=== PATIENT | male | born 1960 | race Caucasian/White ===

== ENCOUNTER 2017-02-16 06:26 | Day surgery (SDC) | payer BC ==
[~2017-02-16 06:26] MED LIST: ACETAMINOPHEN 1,000 MG/100 ML BTL IV ONE; CEFAZOLIN 2 Gram 2 GM/50 ML BAG IVPB ONE; FAMOTIDINE 20MG TABLET PO ONE; MECLIZINE 25 MG TABLET PO ONE; METOCLOPRAMIDE 10 MG TABLET PO ONE
[2017-02-16] MEDS ORDERED: KETOROLAC 30 MG/ML VIAL IVP ONE (14:00)
[2017-02-16] MEDS ORDERED: FENTANYL PF 0.25MG/5ML AMPUL IV ONE (14:00)
[2017-02-16] MEDS ORDERED: SUCCINYLCHOLINE 20 MG/ML 10ML IVP ONE (14:00)
[2017-02-16] MEDS ORDERED: PROPOFOL 10 MG/ML VIAL IV ONE (14:00)
[2017-02-16] MEDS ORDERED: LIDOCAINE 2% MDV (20MG/ML) 20ML VIAL IV ONE (14:00)
[2017-02-16] MEDS ORDERED: MIDAZOLAM HCL 2MG/2ML VIAL IV ONE (14:00)
[2017-02-16] MEDS ORDERED: ROPIVACAINE HCL (NAROPIN) /PF 5MG/ML 20ML VIAL IV ONE (14:00)
[2017-02-16] MEDS ORDERED: DEXAMETHASONE 4 MG/ML 1ML VIAL IVP ONE (14:00)
[2017-02-16] MEDS ORDERED: GLYCOPYRROLATE 0.2 MG/ML ML IV ONE (14:00)
[2017-02-16] MEDS ORDERED: ONDANSETRON HCL IV 4 MG/2 ML VIAL IVP ONE (14:00)
[2017-02-16] MEDS ORDERED: NEOSTIGMINE 1 MG/1 ML,10ML VIAL IV ONE (14:00)
[2017-02-16] MEDS ORDERED: HYDROMORPHONE HCL 2 MG/ML VIAL IV ONE (14:00)
[2017-02-16] MEDS ORDERED: ROCURONIUM BROMIDE 50MG/5ML VIAL IV ONE (14:00)
[2017-02-16] MEDS ORDERED: SEVOFLURANE 250 ML INH ONE (14:00)
[2017-02-16] MEDS ORDERED: HYDROCODONE/APAP 5/325MG TABLET PO ONE (15:01)
[2017-02-16] MEDS ORDERED: BUPIVACAINE 0.25% W/EPI MPF 30ML VIAL IVP ONE (15:01)
--- NOTE | 2017-02-19 09:35 | Operative Note ---
DATE OF SURGERY: 02/16/2017 Surgeon: Gildardo Crowe D.O. Referring Physician: Mena Espinal D.O. Assistant Education Director: Chele Pompa PREOPERATIVE DIAGNOSIS: Recurrent incarcerated ventral hernia. POSTOPERATIVE DIAGNOSIS: Recurrent incarcerated ventral hernia. OPERATION: Laparoscopic ventral herniorrhaphy with mesh. Indication: Patient is a 48-year-old male, on whom I did an appendectomy about 6-8 months ago. He did have an incarcerated hernia at the time, and they did recommend repair afterwards. He came to the clinic complaining of increasing amounts of pain and bulging. On exam he clearly had incarcerated hernia. He had this repaired about 20 years ago, per his recollection. We did discuss laparoscopic repair and risks, benefits, and alternatives. Risks include bleeding, infection, acute or chronic pain recurrence, injury to underlying visceral structures, and he understood this fully. PROCEDURE: Therefore, consent was signed and questions answered. He was taken to the operating room and placed in the supine position. General anesthesia was administered per Department of Anesthesia. Patient's abdomen was shaved, prepped, and draped in sterile fashion. He underwent a tap lock per Department of Anesthesia preoperatively. He did receive 2 grams of Kefzol. At this time, orogastric tube was inserted. Left upper quadrant region was anesthetized with a total of 2 mL of 0.25% Sensorcaine with epinephrine. An 11 mm Visiport was placed. All abdominal layers were traversed under direct visualization until the peritoneal cavity was entered. At this time, a 10 mm angled lens was placed. An additional 5 mm right flank and a 5 mm left flank port were placed. Patient had a hernia just at the base of his falciform ligament. This did contain incarcerated omentum. This was reduced with traction as well as external pressure. The falciform ligament was then taken down all the way to the bottom of the liver with the Enrike Harmonic. The hernia itself measured about 2 cm. At this time, a 10x15 Proceed mesh was obtained. Four preplaced cardinal stitches were applied and then double scroll technique was used. This was placed intraperitoneally. At this time, this was mapped out on the patient's abdomen. Cephalad and caudad stitches were grasped transfascially and held in place. Each side of the mesh was unscrolled and held in place with an additional transfascial suture. We had an excellent overlap of the hernia. This was centered in the mesh. At this time, a tacking device was used to tack the mesh in place in a 360-degree fashion. Intercrown was also placed. These were placed every 1-2 cm. The sutures were then tied down loosely. These were trimmed, and skin dimpling was released. We did re-inspect the mesh, which, again, was lying in excellent position. Scope was flipped around. There was no bowel injury noted and no bleeding noted. There were a few spots of omentum, which were placed in an EndoCatch bag and brought out through the left upper quadrant port. At this time, the pneumoperitoneum was released. All ports were removed. The fascia was closed with 0 Vicryl in a figure-of-8 fashion. Skin and all 3 ports were closed with 4-0 Vicryl. Steri-Strips were placed on the stab incision. Patient was taken to the recovery room in satisfactory condition where a binder was placed. FINDINGS AT TIME OF SURGERY: Incarcerated recurrent ventral hernia containing omentum. CC: Amor Crowder
== END 2017-02-16 11:40 | disposition home or self-care (01) ==
LOC: SUR 06:26
PROVIDERS: ATTEND Surgery
DX: K43.2 Incisional hernia without obstruction or gangrene (principal); I10 Essential (primary) hypertension
CPT/HCPCS: 49653; 00752; 64486; J1885; J2405; J1170; J0690; J2795; J0330; J2710

== ENCOUNTER 2017-05-11 07:23 | Day surgery (SDC) | payer BC ==
--- NOTE | 2017-05-06 15:30 | History and Physical Report ---
DATE OF DICTATION: 05/04/17 CHIEF COMPLAINT: PAINFUL SWELLING AT SIGHT OF PREVIOUS SURGERY. HISTORY OF PRESENT ILLNESS: I saw the patient back in the office on 05/04/17 for a wound recheck. As you know, he developed a stoma and subsequent hematoma after Interventional Radiology placed a drain in his abdominal seroma. This has not resolved completely and it still gives him discomfort. PAST MEDICAL HISTORY: Kidney stone. Deep vein thrombosis. Hernia. PAST SURGICAL HISTORY: Arthroscopy of the knee. Hernia repair. Appendectomy. Tonsillectomy. MEDICATIONS ON ADMISSION: No current medications. ALLERGIES: NO KNOWN DRUG ALLERGIES. FAMILY/PSYCHOSOCIAL HISTORY: Liver cancer. PHYSICAL EXAMINATION: VITAL SIGNS: His vital signs are stable. He is afebrile. Temperature 97.5 degrees Fahrenheit. Height is 69 inches. Weight is 260 lb. BMI is 38.39 kg/m2. BSA is 2.31 m2. ABDOMEN: The area is about the size of a golf ball and tender when pressed. IMPRESSION: POSTSURGICAL HEMATOMA. PLAN: I gave him options of continued observation versus open drainage and he desires an open I&D. This will be scheduled for next Thursday and he may have a drain placed at that time as well. HERMAN
[~2017-05-11 07:23] MED LIST changes: -FAMOTIDINE 20MG TABLET PO ONE; -MECLIZINE 25 MG TABLET PO ONE; -METOCLOPRAMIDE 10 MG TABLET PO ONE
[2017-05-11] MEDS ORDERED: HYDROCODONE/APAP 5/325MG TABLET PO ONE (07:24)
[2017-05-11] MEDS ORDERED: BUPIVACAINE 0.25% W/EPI MPF 30ML VIAL IVP ONE (07:24)
[2017-05-11] MEDS ORDERED: LIDOCAINE 2% MDV (20MG/ML) 20ML VIAL IV ONE (07:24)
[2017-05-11] MEDS ORDERED: PROPOFOL 10 MG/ML VIAL IV ONE (07:24)
[2017-05-11] MEDS ORDERED: FENTANYL PF 100MCG/2ML VIAL IV ONE (07:24)
[2017-05-11] MEDS ORDERED: MIDAZOLAM HCL 2MG/2ML VIAL IV ONE (07:24)
--- NOTE | 2017-05-12 12:30 | Operative Note ---
DATE OF SURGERY: 05/11/2017 PREOPERATIVE DIAGNOSIS: Abdominal wall mass. POSTOPERATIVE DIAGNOSIS: Abdominal wall mass. OPERATION: Excision of abdominal wall mass. Indication: The patient is a 48-year-old male who underwent laparoscopic ventral hernia repair. He developed a seroma postoperatively in 4 weeks. This was drained on 2 separate occasions by the Department of Interventional Radiology. After the drains were pulled, he noticed a mass in the area, which we gave him about a month to 6 weeks to see if this would resolve. He stated that this is very painful for him. I reviewed this with Radiology and they felt they could not do anything further for him. They did discuss operative excision versus continued observation, and he desires surgical excision. Risks for bleeding, infection, recurrence, additional seroma formation, and he understood this fully. The consent was signed, questions were answered. PROCEDURE: He was taken to the operating room and placed in the supine position. Local IV sedation is given per Department of Anesthesia. Patient's abdomen was prepped and draped in the usual fashion. He was given 2 grams Ancef prior. The area over the mass was prepped, draped, and anesthetized with a total of 5 mL of 0.25% Sensorcaine with epinephrine. A 4 cm incision is made. This is carried down through copious amounts of subcutaneous tissue to what we encountered to be about a 5 x 4 cm mass consistent of probable fat necrosis. This is dissected free from the underlying anterior rectus fascia. This was then passed off the field. All bleeding points were cauterized. Irrigation was used. The mass measured 5 x 4 cm into the fascia. A #7 WESLEY drain was then placed and brought up through a separate stab incision. The wound was closed with #3 and #4 Vicryl. Dermabond was placed and he was taken to the recovery room in satisfactory condition. FINDINGS AT TIME OF SURGERY: Abdominal wall mass consistent with probable fat necrosis. CC: DO HERMAN Padilla
== END 2017-05-11 09:45 | disposition home or self-care (01) ==
LOC: SUR 07:23
PROVIDERS: ATTEND Surgery
DX: L02.211 Cutaneous abscess of abdominal wall (principal); I10 Essential (primary) hypertension
CPT/HCPCS: 11406; 13101; 00300; J3010; J0690